=== PATIENT | female | born 1980 | race African-American/Black ===

== ENCOUNTER 2016-07-23 07:17 | Day surgery (SDC) | payer OTHER ==
[~2016-07-23] VITALS: Ht 172.7 cm; Wt 120.2 kg
[~2016-07-23 07:17] MED LIST: ALEVE220 MG OR; AMOXICILLIN500 M1 OR; ASPIRIN EC81 MG PO; ATORVASTATIN CA40 MG PO; BACTRIM DS1 TAB PO; CEPHALEXIN500 MG PO; CLEOCIN150 MG PO; CYCLOBENZAPR5 MG PO; IBUPROFEN600 MG PO; LORTAB 5/3255 MG PO; LORTAB5 PO; MEDDOSEPAK PO; METOPROL TAR25 MG PO; MOTRIN800 MG OR; NAPROSYN500 MG OR; NITROSTAT0.4 MG SL; NO MEDS; PENICILLN VK500 MG PO; TORADOL OR; ULTRAM50 M1 PO; VICODIN ES1 TAB OR; ZPAK OR
[2016-07-23] MEDS ORDERED: LORTAB 7.57.5 MG PO (12:38)
[2016-07-23 14:35] VITALS: BP 99/54
== END 2016-07-23 15:53 | disposition home or self-care (01) | DRG 742 ==
LOC: ORM 07:17
PROVIDERS: ATTEND Obstetrics & Gynecology
PROC: 0UT64ZZ Resection of Left Fallopian Tube, Percutaneous Endoscopic Approach (ICD-10-PCS; principal; 2016-07-23)
PROC: 0UT14ZZ Resection of Left Ovary, Percutaneous Endoscopic Approach (ICD-10-PCS; 2016-07-23)
DX: D27.1 Benign neoplasm of left ovary (principal); Z68.41 Body mass index [BMI] 40.0-44.9, adult; E66.9 Obesity, unspecified
CPT/HCPCS: J2710

== ENCOUNTER 2017-05-21 17:22 | Emergency (ER) | payer SELFPAY ==
[~2017-05-21] VITALS: Ht 172.7 cm; Wt 122.0 kg
[~2017-05-21 17:22] MED LIST changes: +LORTAB 7.57.5 MG PO
[2017-05-21 19:03] LABS: HEMATOCRIT 33.5 % (37.0-47.0); HEMOGLOBIN 10.6 g/dl (12.0-16.0); IMMATURE GRANULOCYTES 0.3 % (0.0-1.0); MEAN CELL VOLUME 85.9 fL CALC (80.0-100.0); MEAN CORPUSCULAR HGB 27.2 pG CALC (26.0-32.0); MEAN CORPUSCULAR HGB CONC 31.6 g/L CALC (32.0-36.0); NEUT# 4.41 thou/uL (2.00-7.15); RED BLOOD COUNT 3.9 mill/uL (4.20-5.60); RED CELL DISTRI WIDTH 16.8 % (11.5-15.5)
[2017-05-21 19:10] LABS: BARBITURATES NEGATIVE (NEGATIVE); COCAINE NEGATIVE (NEGATIVE); METHADONE NEGATIVE (NEGATIVE); OXCYCODONE NEGATIVE (NEGATIVE); TETRAHYDROCANNABIONOL NEGATIVE (NEGATIVE); TRICYLIC ANTIDEPRESSANTS NEGATIVE (NEGATIVE); URINE BILIRUBIN - DIPSTICK NEGATIVE (NEGATIVE); URINE BLOOD DIPSTICK NEGATIVE (NEGATIVE); URINE COLOR YELLOW; URINE GLUCOSE - DIPSTICK NEGATIVE (NEGATIVE); URINE KETONE NEGATIVE (NEGATIVE); URINE LEUK ESTERASE NEGATIVE (NEGATIVE); URINE NITRITE - DIPSTICK NEGATIVE (Negative); URINE PH 5.5 (4.5-8.0); URINE PROTEIN - DIPSTICK NEGATIVE (NEG-TRACE); URINE UROBILINOGEN - DIPSTICK 0.2 E.U./dL (0.2)
[2017-05-21 19:11] LABS: URINE CLARITY CLEAR
[2017-05-21 19:15] LABS: ALBUMIN 4.4 g/dL (3.2-5.0); ALKALINE PHOSPHATASE 77 u/l (38-126); AMYLASE 81 u/l (30-110); ANION GAP 18 (6-22 (CALC)); BILIRUBIN, TOTAL 0.3 mg/dL (0.0-1.4); BUN 14 mg/dL (7-17); BUN/CREATININE RATIO 16 (12-20 (CALC)); CARBON DIOXIDE 22 mmol/l (22-30); CHLORIDE 107 mmol/l (95-108); CREATININE 0.8 mg/dL (0.5-1.0); GFR > 60 ML/MIN (>=60 (CALC)); GFR FOR AFR.AMER. > 60 ML/MIN (>=60 (CALC)); LIPASE 172 u/l (23-300); POTASSIUM 4.3 mmol/l (3.5-5.1); SGOT/AST 37 u/l (14-36); SGPT/ALT 32 u/l (9-52); SODIUM 143 mmol/l (137-146); TOTAL PROTEIN 7.8 g/dL (6.3-8.2)
[2017-05-21 19:27] LABS: MYOGLOBIN 36 ng/mL (0 - 62)
[2017-05-21] MEDS ORDERED: NAPROSYN500 MG PO (22:17)
[2017-05-21 23:21] VITALS: BP 146/83
== END 2017-05-21 23:26 | disposition home or self-care (01) | DRG 313 ==
LOC: ED 17:22
PROVIDERS: Emergency Medicine
DX: R07.9 Chest pain, unspecified (principal)

== ENCOUNTER 2019-04-01 21:38 | Emergency (ER) | payer OTHER ==
[~2019-04-01] VITALS: Ht 172.7 cm; Wt 118.0 kg
[~2019-04-01 21:38] MED LIST changes: +NAPROSYN500 MG PO
[2019-04-01 22:27] LABS: HEMATOCRIT 29.7 % (37.0-47.0); HEMOGLOBIN 9.1 g/dl (12.0-16.0); IMMATURE GRANULOCYTES 0.3 % (0.0-5.0); MEAN CELL VOLUME 83.4 fL CALC (80.0-100.0); MEAN CORPUSCULAR HGB 25.6 pG CALC (26.0-32.0); MEAN CORPUSCULAR HGB CONC 30.6 g/L CALC (32.0-36.0); NEUT# 4.53 thou/uL (2.00-7.15); RED BLOOD COUNT 3.56 mill/uL (4.20-5.60); RED CELL DISTRI WIDTH 17.2 % (11.5-15.5)
[2019-04-01 22:42] LABS: ALBUMIN 4.1 g/dL (3.2-5.0); ALKALINE PHOSPHATASE 71 u/l (38-126); ANION GAP 14 (6-22 (CALC)); BILIRUBIN, TOTAL 0.2 mg/dL (0.0-1.4); BUN 12 mg/dL (7-17); BUN/CREATININE RATIO 14 (12-20 (CALC)); CARBON DIOXIDE 24 mmol/l (22-30); CHLORIDE 104 mmol/l (95-108); CREATININE 0.9 mg/dL (0.5-1.0); GFR > 60 ML/MIN (>=60 (CALC)); GFR FOR AFR.AMER. > 60 ML/MIN (>=60 (CALC)); POTASSIUM 4.3 mmol/l (3.5-5.1); SGOT/AST 24 u/l (14-36); SODIUM 137 mmol/l (137-146); TOTAL PROTEIN 7.7 g/dL (6.3-8.2)
[2019-04-01 23:40] VITALS: BP 142/80
== END 2019-04-01 23:40 | disposition home or self-care (01) ==
LOC: ED 21:38
PROVIDERS: Emergency Medicine
DX: R25.2 Cramp and spasm (principal); D64.9 Anemia, unspecified

== ENCOUNTER 2019-10-18 09:03 | Emergency (ER) | payer OTHER ==
[~2019-10-18] VITALS: Ht 172.7 cm; Wt 117.0 kg
[2019-10-18 09:56] LABS: HEMATOCRIT 32.9 % (37.0-47.0); HEMOGLOBIN 10.4 g/dl (12.0-16.0); IMMATURE GRANULOCYTES 0.2 % (0.0-5.0); MEAN CELL VOLUME 85.2 fL CALC (80.0-100.0); MEAN CORPUSCULAR HGB 26.9 pG CALC (26.0-32.0); MEAN CORPUSCULAR HGB CONC 31.6 g/dL CAL (32.0-36.0); NEUT# 4.59 thou/uL (2.00-7.15); RED BLOOD COUNT 3.86 mill/uL (4.20-5.60); RED CELL DISTRI WIDTH 18.3 % (11.5-15.5)
[2019-10-18 10:09] LABS: ALBUMIN 4.8 g/dL (3.2-5.0); ALKALINE PHOSPHATASE 77 u/l (38-126); ANION GAP 12 (6-22 (CALC)); BILIRUBIN, TOTAL 0.2 mg/dL (0.0-1.4); BUN 15 mg/dL (7-17); BUN/CREATININE RATIO 17 (12-20 (CALC)); CARBON DIOXIDE 24 mmol/l (22-30); CHLORIDE 105 mmol/l (95-108); CREATININE 0.9 mg/dL (0.5-1.0); GFR > 60 ML/MIN (>=60 (CALC)); GFR FOR AFR.AMER. > 60 ML/MIN (>=60 (CALC)); SGOT/AST 30 u/l (14-36); SODIUM 136 mmol/l (137-146); TOTAL PROTEIN 8.4 g/dL (6.3-8.2)
[2019-10-18 11:10] VITALS: BP 125/87
== END 2019-10-18 11:10 | disposition short-term general hospital (02) ==
LOC: ED 09:03
PROVIDERS: Family Medicine
DX: I20.0 Unstable angina (principal)
CPT/HCPCS: J1644

== ENCOUNTER 2021-01-15 22:18 | Emergency (ER) | payer OTHER ==
[~2021-01-15] VITALS: Ht 172.7 cm; Wt 125.0 kg
[2021-01-15 23:34] LABS: HEMATOCRIT 31.8 % (37.0-47.0); HEMOGLOBIN 10.3 g/dl (12.0-16.0); IMMATURE GRANULOCYTES 0.1 % (0.0-5.0); MEAN CORPUSCULAR HGB 29.8 pG CALC (26.0-32.0); MEAN CORPUSCULAR HGB CONC 32.4 g/dL CAL (32.0-36.0); NEUT# 4.58 thou/uL (2.00-7.15); RED BLOOD COUNT 3.46 mill/uL (4.20-5.60); RED CELL DISTRI WIDTH 15.5 % (11.5-15.5)
[2021-01-15 23:35] LABS: URINE BILIRUBIN - DIPSTICK NEGATIVE (NEGATIVE); URINE BLOOD DIPSTICK NEGATIVE (NEGATIVE); URINE COLOR YELLOW; URINE GLUCOSE - DIPSTICK NEGATIVE (NEGATIVE); URINE KETONE NEGATIVE (NEGATIVE); URINE LEUK ESTERASE NEGATIVE (NEGATIVE); URINE NITRITE - DIPSTICK NEGATIVE (Negative); URINE PROTEIN - DIPSTICK NEGATIVE (NEG-TRACE); URINE SPECIFIC GRAVITY >=1.030; URINE UROBILINOGEN - DIPSTICK 0.2 E.U./dL (0.2)
[2021-01-15 23:35] LABS: MEAN CELL VOLUME 91.9 fL CALC (80.0-100.0)
[2021-01-15 23:51] LABS: ALBUMIN 3.6 g/dL (3.2-5.0); ALKALINE PHOSPHATASE 78 u/l (38-126); AMYLASE 60 u/l (30-110); ANION GAP 8 (6-22 (CALC)); BILIRUBIN, TOTAL 0.3 mg/dL (0.0-1.4); BUN 16 mg/dL (7-17); BUN/CREATININE RATIO 18 (12-20 (CALC)); CARBON DIOXIDE 25 mmol/l (22-30); CHLORIDE 106 mmol/l (95-108); CREATININE 0.9 mg/dL (0.5-1.0); GFR > 60 ML/MIN (>=60 (CALC)); GFR FOR AFR.AMER. > 60 ML/MIN (>=60 (CALC)); LIPASE 123 u/l (23-300); POTASSIUM 3.8 mmol/l (3.5-5.1); SGOT/AST 21 u/l (14-36); SODIUM 136 mmol/l (137-146); TOTAL PROTEIN 6.7 g/dL (6.3-8.2)
[2021-01-16] MEDS ORDERED: METRONIDAZOL500 MG PO ×2 (00:43→00:44)
[2021-01-16] MEDS ORDERED: CIPROFLOXACN500 MG PO ×2 (00:43→00:44)
[2021-01-16] MEDS ORDERED: TRAMADOL HCL50 MG PO (00:44)
[2021-01-16 01:00] VITALS: BP 137/72
== END 2021-01-16 01:05 | disposition home or self-care (01) ==
LOC: ED 22:18
PROVIDERS: Family Medicine
DX: K57.32 Diverticulitis of large intestine without perforation or abscess without bleeding (principal)
CPT/HCPCS: Q9967

== ENCOUNTER 2022-03-18 13:25 | Emergency (ER) | payer OTHER ==
[~2022-03-18] VITALS: Ht 172.7 cm; Wt 122.4 kg
[2022-03-18] VITALS (7 sets, daily range): BP systolic 122–143; BP diastolic 78–89
[~2022-03-18 13:25] MED LIST changes: +CIPROFLOXACN500 MG PO; +METRONIDAZOL500 MG PO; +TRAMADOL HCL50 MG PO
[2022-03-18 14:45] LABS: HEMATOCRIT 36.1 % (37.0-47.0); HEMOGLOBIN 11.6 g/dl (12.0-16.0); IMMATURE GRANULOCYTES 0.1 % (0.0-5.0); MEAN CELL VOLUME 88.7 fL CALC (80.0-100.0); MEAN CORPUSCULAR HGB 28.5 pG CALC (26.0-32.0); MEAN CORPUSCULAR HGB CONC 32.1 g/dL CAL (32.0-36.0); NEUT# 5.79 thou/uL (2.00-7.15); RED BLOOD COUNT 4.07 mill/uL (4.20-5.60); RED CELL DISTRI WIDTH 15.8 % (11.5-15.5)
[2022-03-18 14:59] LABS: ALKALINE PHOSPHATASE 87 u/l (38-126); ANION GAP 15 (6-22 (CALC)); BUN 13 mg/dL (7-17); BUN/CREATININE RATIO 15 (12-20 (CALC)); CARBON DIOXIDE 23 mmol/l (22-30); CHLORIDE 106 mmol/l (95-108); CREATININE 0.9 mg/dL (0.5-1.0); GFR FOR AFR.AMER. > 60 ML/MIN (>=60 (CALC)); GFR OTHER RACES > 60 ML/MIN (>=60 (CALC)); LIPASE 72 u/l (23-300); POTASSIUM 3.9 mmol/l (3.5-5.1); SODIUM 140 mmol/l (137-146)
[2022-03-18 15:00] LABS: ALBUMIN 4.5 g/dL (3.2-5.0); BILIRUBIN, TOTAL 0.1 mg/dL (0.0-1.4); SGOT/AST 40 u/l (14-36); TOTAL PROTEIN 8.2 g/dL (6.3-8.2)
[2022-03-18 16:40] LABS: URINE BILIRUBIN - DIPSTICK NEGATIVE (NEGATIVE); URINE BLOOD DIPSTICK NEGATIVE (NEGATIVE); URINE COLOR YELLOW; URINE GLUCOSE - DIPSTICK NEGATIVE (NEGATIVE); URINE KETONE NEGATIVE (NEGATIVE); URINE LEUK ESTERASE NEGATIVE (NEGATIVE); URINE PH 5.5 (4.5-8.0); URINE PROTEIN - DIPSTICK NEGATIVE (NEG-TRACE); URINE SPECIFIC GRAVITY >=1.030; URINE UROBILINOGEN - DIPSTICK 0.2 E.U./dL (0.2)
[2022-03-18 16:51] LABS: URINE NITRITE - DIPSTICK NEGATIVE (Negative)
== END 2022-03-18 17:15 | disposition home or self-care (01) ==
LOC: ED 13:25
PROVIDERS: Family Medicine
DX: R10.13 Epigastric pain (principal); R10.11 Right upper quadrant pain